=== PATIENT | female | born 1970 | race Caucasian/White ===

== ENCOUNTER 2018-11-23 09:06 | Day surgery (SDC) | payer MEDICARE, OTHER ==
[~2018-11-23] VITALS: Ht 170.2 cm; Wt 103.9 kg
[2018-11-23] VITALS (7 sets, daily range): BP systolic 116–156; BP diastolic 72–102
[~2018-11-23 09:06] MED LIST: EST1T PO; GABA600T13 PO
[2018-11-23] MEDS ORDERED: ceFOXitin 2 GM ADDvantage bag 100 ML IV ONE (10:15)
[2018-11-23] MEDS ORDERED: famotidine 20mg tablet PO ONE (10:15)
[2018-11-23] MEDS ORDERED: ringers solution, lacted 1,000 ML IV SCH ×2 (10:15→12:52)
[2018-11-23 10:19] LABS: BASOPHILS # (AUTO) 0.1 X10'3 (0-0.2); EOSINOPHILS # (AUTO) 0.1 X10'3 (0-0.9); EOSINOPHILS % (AUTO) 1.6 % (0-6); HEMATOCRIT 41.2 % (35.0-45.0); HEMOGLOBIN 14.1 g/dl (12.0-16.0); LYMPHOCYTES # (AUTO) 1.6 X10'3 (1.1-4.8); LYMPHOCYTES % (AUTO) 27.3 % (21-51); MEAN CORPUSCULAR HEMOGLOBIN 29.2 PG (27.0-31.0); MEAN CORPUSCULAR HGB CONC 34.2 g/dL (33.0-36.5); MEAN CORPUSCULAR VOLUME 85.2 FL (78-98); MONOCYTES # (AUTO) 0.4 X10'3 (0-0.9); MONOCYTES % (AUTO) 7.4 % (2-12); NEUTROPHILS # (AUTO) 3.7 X10'3 (1.8-7.7); NEUTROPHILS % (AUTO) 62.7 % (42-75); PLATELET COUNT 181 X10'3 (140-440); RED BLOOD COUNT 4.83 X10'6 (4.20-5.60); RED CELL DISTRIBUTION WIDTH 13.1 % (11.5-14.5); WHITE BLOOD COUNT 5.9 X10'3 (4.5-11.0)
[2018-11-23 10:30] LABS: ALANINE AMINOTRANSFERASE 39 U/L (12-78); ALBUMIN 3.5 G/DL (3.4-5.0); ALBUMIN/GLOBULIN RATIO 0.9 (1.1-1.5); ALKALINE PHOSPHATASE 93 IU/L (46-116); ANION GAP 7 (8-16); ASPARTATE AMINO TRANSFERASE 20 U/L (10-37); BILIRUBIN,TOTAL 0.4 MG/DL (0.1-1.0); BLOOD UREA NITROGEN 17 MG/DL (7-18); BUN/CREATININE RATIO 22.7 (6.6-38.0); CALCIUM 8.7 MG/DL (8.5-10.1); CHLORIDE 106 MMOL/L (99-107); CREATININE 0.75 MG/DL (0.40-0.90); GLUCOSE 80 MG/DL (70-104); POTASSIUM 3.8 MMOL/L (3.5-5.1); SODIUM 139 MMOL/L (135-145); TOTAL CARBON DIOXIDE 25.7 MMOL/L (24-32); TOTAL PROTEIN 7.3 G/DL (6.4-8.2); eGFR 82 ML/MIN
[2018-11-23] MEDS ORDERED: ceFAZolin 1000mg inj ONE (11:05)
[2018-11-23] MEDS ORDERED: BUPIVAcaine/PF 2.5 mg/ml (0.25%) 30ml vial ONE (11:05)
[2018-11-23] MEDS ORDERED: fentaNYL/PF 50MCG/1 ML 2ML syringe ONE ×2 (12:10)
[2018-11-23] MEDS ORDERED: propofol inj 20 ML IV ONE (12:11)
[2018-11-23] MEDS ORDERED: midazolam 2 mg/2 ml injection ONE (12:11)
[2018-11-23] MEDS ORDERED: rocuronium 10mg/ml inj IV ONE (12:11)
[2018-11-23] MEDS ORDERED: sevoflurane 250ml liquid IH ONE (12:31)
[2018-11-23] MEDS ORDERED: dexamethasone sod phosphate 4mg/ml inj. ONE (12:43)
[2018-11-23] MEDS ORDERED: ondansetron/PF 4mg/2ml inj ONE (12:44)
[2018-11-23] MEDS ORDERED: proCHLORperazine 10 MG/2 ml inj IV PRN (12:55)
[2018-11-23] MEDS ORDERED: morphine 4 MG/ML inj SYRINge IV PRN ×2 (12:55)
[2018-11-23] MEDS ORDERED: meperidine/PF 25mg/ml syringe IV PRN ×2 (12:55)
[2018-11-23] MEDS ORDERED: ondansetron/PF 4mg/2ml inj IV PRN (12:55)
[2018-11-23] MEDS ORDERED: sugammadex 200mg/2ml injection IV ONE (13:02)
[2018-11-23] MEDS ORDERED: acetaminophen 1,000mg/100ml IV 100 ML IV ONE (13:25)
[2018-11-23] MEDS ORDERED: ketorolac trometh. 30mg/ml inj. IM ONE (13:25)
--- NOTE | 2018-11-23 13:25 | NUR ---
Received from OR via BED , accompanied by Anesthesiologist DR GONSALVES and report given by Anesthesiolgist. PATIENT WAKING UP, DENIES PAIN, V/S WNL, NEUROVASCULAR CHECKS INTACT, 20G PIV RUE, SCD ON, BANDAIDS TO LAP SIGHTS OF ABDOMEN CDI.
[2018-11-23] MEDS: meperidine/PF 25mg/ml syringe IV PRN ×2 (13:38→13:50)
--- NOTE | 2018-11-23 14:15 | NUR ---
PATIENT A&OX4, DENIES PAIN, V/S WNL, NEUROVASCULAR CHECKS INTACT, 20G PIV RUE D/C, SCD OFF, BANDAIDS TO LAP SIGHTS OF ABDOMEN CDI.. I HAVE REVIEWED D/C INSTRUCTIONS WITH PATIENT AND FAMILY HAVE VERBALIZED UNDERSTANDING.PATIENT WAS D/C HOME WITH ALL BELONGINGS AND FAMILY GAVE TRANSPORT HOME.
== END 2018-11-23 14:15 | disposition home or self-care (01) ==
LOC: PAS 09:06
PROVIDERS: ATTEND Surgery
DX: K81.1 Chronic cholecystitis (principal); F41.9 Anxiety disorder, unspecified; E66.9 Obesity, unspecified; Z87.442 Personal history of urinary calculi; Z90.710 Acquired absence of both cervix and uterus; Z80.9 Family history of malignant neoplasm, unspecified; Z87.891 Personal history of nicotine dependence; Z79.899 Other long term (current) drug therapy; Z68.35 Body mass index [BMI] 35.0-35.9, adult
CPT/HCPCS: 36415; 47562; 80053; 85025; 93005; C9399; J0131; J0690; J0694; J1100; J1885; J2175; J2250; J2405; J2704; J3010; J3490; J7120; A7000